=== PATIENT | female | born 1990 | race African-American/Black ===

== ENCOUNTER 2021-10-13 16:30 | Emergency (ER) | payer SELFPAY ==
[~2021-10-13] VITALS: Ht 157.5 cm; Wt 69.0 kg
[2021-10-13 16:34] VITALS: BP 96/66
[2021-10-13] MEDS ORDERED: IBUPROFEN 400MG TABLET PO ONE (17:30)
[2021-10-13] MEDS ORDERED: ACETAMINOPHEN 325MG TABLET PO ONE (17:30)
[2021-10-13 19:12] LABS: HEMATOCRIT 39.5 % (36.0-48.0); HEMOGLOBIN 12.5 g/dL (12.0-16.0); MEAN CORPUSCULAR HEMOGLOBIN 25.2 pg (28.0-32.0); MEAN CORPUSCULAR VOLUME 79.4 fL (81.0-99.0); PLATELET 153 x1000/uL (130-400); RED BLOOD CELL COUNT 4.98 mill/uL (4.2-5.4); RED CELL DISTRIBUTION WIDTH 16.6 % (11.6-14.6)
== END 2021-10-13 23:00 | disposition home or self-care (01) ==
LOC: ER 16:30
DX: O46.92 Antepartum hemorrhage, unspecified, second trimester (principal); Z3A.16 16 weeks gestation of pregnancy
CPT/HCPCS: 36415; 84702; 85027; 99283